=== PATIENT | male | born 1985 | race Two or more races ===

== ENCOUNTER 2022-07-06 21:57 | Inpatient (IN) | payer OTHER ==
[~2022-07-06] VITALS: Ht 175.3 cm; Wt 88.5 kg
[2022-07-12] MEDS ORDERED: LIPITOR20 MG PO (18:19)
[2022-07-12] MEDS ORDERED: AMLODIPINE BESYL5 MG PO (18:19)
[2022-07-12] MEDS ORDERED: METOPROLOL TART50 MG PO (18:19)
[2022-07-12] MEDS ORDERED: AVAPRO300 MG PO (18:19)
[2022-07-12] MEDS ORDERED: CARdura 2MG TABLET PO (18:19)
== END 2022-07-12 19:35 | disposition home or self-care (01) | DRG 305 ==
LOC: ER 21:57 → MEDI 07-07 15:23 → ICU-2 07-07 15:23 → ICU 07-08 22:21 → MEDJ 07-09 18:28
PROVIDERS: ADMIT Internal Medicine; ATTEND Internal Medicine
PROC: BT4JZZZ Ultrasonography of Kidneys and Bladder (ICD-10-PCS; 2022-07-07)
PROC: BW28ZZZ Computerized Tomography (CT Scan) of Head (ICD-10-PCS; 2022-07-07)
PROC: B246ZZZ Ultrasonography of Right and Left Heart (ICD-10-PCS; 2022-07-07)
PROC: BW21YZZ Computerized Tomography (CT Scan) of Abdomen and Pelvis using Other Contrast (ICD-10-PCS; 2022-07-08)
PROC: 4A12X4Z Monitoring of Cardiac Electrical Activity, External Approach (ICD-10-PCS; principal; 2022-07-09)
DX: I16.0 Hypertensive urgency (principal); N13.30 Unspecified hydronephrosis; I12.9 Hypertensive chronic kidney disease with stage 1 through stage 4 chronic kidney disease, or unspecified chronic kidney disease; N18.9 Chronic kidney disease, unspecified; R00.0 Tachycardia, unspecified; R80.8 Other proteinuria; E66.3 Overweight